=== PATIENT | female | born 1990 | race Caucasian/White ===

== ENCOUNTER 2021-05-30 17:40 | Inpatient (IN) | payer SELFPAY ==
[2021-05-30 19:45] VITALS: BMI 20.1
[2021-05-30] MEDS ORDERED: METHOCARBAMOL 500 MG TABLET PO PRN (22:25)
[2021-05-30] MEDS ORDERED: ACETAMINOPHEN 325 MG TABLET (FP) PO PRN ×2 (22:25)
[2021-05-30] MEDS ORDERED: cloNIDine HCL 0.1 MG TABLET PO PRN (22:25)
[2021-05-30] MEDS ORDERED: ONDANSETRON *ODT* 4 MG TABLET SL PRN (22:25)
[2021-05-30] MEDS ORDERED: MAGNESIUM CITRATE 300 ML BOTTLE PO PRN (22:25)
[2021-05-30] MEDS ORDERED: BENZOCAINE/MENTHOL (CHLORASEPTIC ) LOZENGE MM PRN (22:25)
[2021-05-30] MEDS ORDERED: MAG HYDROX/AL HYDROX/SIMETH 30 ML UNIT-DOSE CUP PO PRN (22:25)
[2021-05-30] MEDS ORDERED: DICYCLOMINE HCL 10 MG CAPSULE PO PRN (22:25)
[2021-05-30] MEDS ORDERED: LOPERAMIDE HCL 2 MG CAPSULE PO PRN (22:25)
[2021-05-30] MEDS ORDERED: MAGNESIUM HYDROX 2400MG/30ML ORAL SUSPENSION 30 ML CUP PO PRN (22:25)
[2021-05-30] MEDS ORDERED: BISMUTH SUBSALICYLATE 524 MG/30 ML PO PRN (22:25)
[2021-05-30] MEDS ORDERED: methaDONE HCL 10 MG TABLET (FOR DETOX USE ONLY) PO ONE (22:25)
[2021-05-30] MEDS ORDERED: guaiFENesin 200 MG/10 ML 10 ML UNIT-DOSE CUPS PO PRN (22:25)
[2021-05-30] MEDS: hydrOXYzine PAMOATE 25 MG CAPSULE (FP) PO PRN (23:28)
[2021-05-31 10:29] LABS: HEMATOCRIT 40.7 % (32.4-45.2); HEMOGLOBIN 14.2 GM/dL (10.7-15.3); MCHC 34.8 g/dl (32.0-36.0); MEAN CELL VOLUME 89.1 fl (80-96); MEAN PLT VOLUME 8.2 fl (7.5-11.1); PLATELET COUNT 349 10^3/uL (134-434); RBC 4.56 M/mm3 (3.60-5.2); RDW 12.6 % (11.6-15.6); WHITE BLOOD COUNT 10.7 K/mm3 (4.0-10.0)
[2021-05-31 10:38] LABS: CALCIUM 8.8 mg/dL (8.5-10.1)
[2021-05-31 10:39] LABS: ALBUMIN 3.2 g/dl (3.4-5.0); BLOOD UREA NITROGEN 6.4 mg/dL (7-18)
[2021-05-31 10:43] LABS: BILIRUBIN,TOTAL 0.6 mg/dL (0.2-1); TOT PROT 6.3 g/dl (6.4-8.2)
[2021-05-31 10:44] LABS: CREATININE 0.7 mg/dL (0.55-1.3)
[2021-05-31] MEDS ORDERED: methaDONE HCL 10 MG TABLET (FOR DETOX USE ONLY) ONE (10:48)
[2021-05-31] MEDS: PRENATAL VITAMINS W/ FOLIC ACID TABLET (FP) PO SCH (11:10)
[2021-05-31] MEDS: clonazePAM 0.5 MG ODT TABLETS SL SCH ×2 (11:10→23:07)
[2021-05-31] MEDS: THIAMINE HCL 100 MG TABLET (FP) PO SCH (23:07)
[2021-05-31] MEDS: MELATONIN 5 MG TABLETS PO SCH (23:07)
[2021-06-01] MEDS: hydrOXYzine PAMOATE 25 MG CAPSULE (FP) PO PRN (02:04)
[2021-06-01] MEDS ORDERED: methaDONE HCL 10 MG TABLET (FOR DETOX USE ONLY) PO ONE (10:00)
[2021-06-01 10:07] LABS: SARS-CoV-2 NAA Not Detected (Not Detected)
[2021-06-01] MEDS: clonazePAM 0.5 MG ODT TABLETS SL SCH ×2 (10:21→22:48)
[2021-06-01] MEDS: PRENATAL VITAMINS W/ FOLIC ACID TABLET (FP) PO SCH (10:23)
[2021-06-01] MEDS: MELATONIN 5 MG TABLETS PO SCH (22:48)
[2021-06-01] MEDS: THIAMINE HCL 100 MG TABLET (FP) PO SCH (22:48)
[2021-06-02] MEDS ORDERED: methaDONE HCL 10 MG TABLET (FOR DETOX USE ONLY) ONE (09:59)
[2021-06-02] MEDS: clonazePAM 0.5 MG ODT TABLETS SL SCH ×2 (11:17→22:35)
[2021-06-02] MEDS: PRENATAL VITAMINS W/ FOLIC ACID TABLET (FP) PO SCH (11:17)
[2021-06-02] MEDS: THIAMINE HCL 100 MG TABLET (FP) PO SCH (22:35)
[2021-06-02] MEDS: MELATONIN 5 MG TABLETS PO SCH (22:35)
[2021-06-02] MEDS: hydrOXYzine PAMOATE 25 MG CAPSULE (FP) PO PRN (22:36)
[2021-06-02] MEDS: IBUPROFEN 400 MG TABLET (FP) PO PRN (22:37)
[2021-06-03] MEDS: IBUPROFEN 400 MG TABLET (FP) PO PRN (04:46)
[2021-06-03] MEDS: hydrOXYzine PAMOATE 25 MG CAPSULE (FP) PO PRN ×2 (04:46→19:01)
[2021-06-03] MEDS ORDERED: methaDONE HCL 10 MG TABLET (FOR DETOX USE ONLY) PO ONE (10:00)
[2021-06-03] MEDS: PRENATAL VITAMINS W/ FOLIC ACID TABLET (FP) PO SCH (10:16)
[2021-06-03 16:56] VITALS: BP 113/64; PULSE 84; TEMP 98
== END 2021-06-03 19:24 | disposition left against medical advice (07) | DRG 770 ==
LOC: YASAS 17:40 → Y3N 22:42
PROVIDERS: ADMIT Allergy & Immunology; ATTEND Allergy & Immunology
PROC: HZ2ZZZZ Detoxification Services for Substance Abuse Treatment (ICD-10-PCS; principal; 2021-05-30)
DX: F11.23 Opioid dependence with withdrawal (principal); F14.20 Cocaine dependence, uncomplicated; F19.24 Other psychoactive substance dependence with psychoactive substance-induced mood disorder; J45.909 Unspecified asthma, uncomplicated
CPT/HCPCS: 36415; 80053; 81025; 85027; 86780; 93005; 93010; C9803-CS; Q0162; U0003; U0005